=== PATIENT | female | born 1985 | race Caucasian/White ===

== ENCOUNTER 2020-02-20 00:54 | Emergency (ER) | payer BC ==
[~2020-02-20] VITALS: Ht 170.2 cm; Wt 61.7 kg
== END 2020-02-20 02:47 | disposition home or self-care (01) ==
LOC: ED 00:54
DX: O20.0 Threatened abortion (principal); Z3A.13 13 weeks gestation of pregnancy; Z88.1 Allergy status to other antibiotic agents
CPT/HCPCS: 80048; 84702; 85025; 86900; 86901; 99284